=== PATIENT | female | born 1960 | race Caucasian/White ===

== ENCOUNTER 2017-07-20 08:49 | Outpatient (CLI) | payer BC | END 2017-07-20 08:50 | disposition home or self-care (01) | LOC: BICMAMMO 08:49 | PROVIDERS: ATTEND Family Medicine | DX: Z12.31 Encounter for screening mammogram for malignant neoplasm of breast (principal); Z85.850 Personal history of malignant neoplasm of thyroid; Z80.3 Family history of malignant neoplasm of breast | CPT/HCPCS: 77063; 77067 ==

== ENCOUNTER 2018-07-27 09:43 | Outpatient (CLI) | payer BC ==
--- NOTE | 2018-07-27 10:05 | RAD ---
2 views chest HISTORY: Chest pain. PA and lateral views of the chest obtained. Comparison made to previous exam from 09/14/2016. 2 views chest demonstrate the lungs to be well aerated. No evidence of active intrathoracic disease s een. No evidence of effusions, pneumonia or pneumothorax seen IMPRESSION: unremarkable 2 views chest.
== END 2018-07-27 09:44 | disposition home or self-care (01) ==
LOC: RAD 09:43
PROVIDERS: ATTEND Family Medicine
DX: R07.1 Chest pain on breathing (principal)
CPT/HCPCS: 71046

== ENCOUNTER 2018-09-19 07:57 | Outpatient (CLI) | payer BC ==
--- NOTE | 2018-09-19 12:11 | CT ---
CT CHEST WITH IV CONTRAST: DATE: 09/19/2018. PROVIDED CLINICAL HISTORY: Chest pain. FINDINGS: Comparison is made with CT examination of the abdomen and pelvis dated 09/11/2015. Minimal vascular calcification is seen. The heart, pericardium, and great vessels demonstrate an oth erwise unremarkable CT appearance. There is no evidence for thoracic lymph node enlargement. The airway appears patent and of normal caliber. No pleural fluid or pneumothorax apparent. Liver-containing diaphragmatic hernia is redemonstrated, appearing larger than on prior. Previously, the diameter of the herniated liver measured approximately 4.5 cm. Now it measures approximately 5. 7 cm. The lung parenchyma is free of significant opacity. Postoperative changes of gastric sleeve a nd cholecystectomy are seen. Diffuse fatty infiltration of the liver and stable left adrenal nodule. The osseous structures demonstrate no concerning lytic or blastic lesions. IMPRESSION: 1. Interval increase in size of liver-containing diaphragmatic hernia as above. 2. Chronic findings as above. POS: [facility]
[2018-09-19] MEDS ORDERED: ISOVUE-370 76%-LOCM 1 ML ONE (14:35)
== END 2018-09-19 07:58 | disposition home or self-care (01) ==
LOC: BICCT 07:57
PROVIDERS: ATTEND Family Medicine
DX: R07.89 Other chest pain (principal); K44.9 Diaphragmatic hernia without obstruction or gangrene; K76.0 Fatty (change of) liver, not elsewhere classified; E27.8 Other specified disorders of adrenal gland; I99.9 Unspecified disorder of circulatory system; Z90.49 Acquired absence of other specified parts of digestive tract; Z98.84 Bariatric surgery status
CPT/HCPCS: 71260; Q9966

== ENCOUNTER 2018-09-23 08:13 | Outpatient (CLI) | payer BC ==
--- NOTE | 2018-09-23 09:06 | MMO ---
Bilateral MAMMO Bilat Screen [facility]. CLINICAL HISTORY: Patient is 58 years old and is seen for screening. The patient has the following family history of breast cancer: maternal aunt, malignant (generic), x2 and cousin female, malignant (generic). The patient has a history of thyroid cancer. The patient has a history of Implants in 1985. VIEWS: The views performed were: bilateral craniocaudal with tomosynthesis; bilateral mediolateral oblique with tomosynthesis; and bilateral Implant displaced. FILMS COMPARED: The present examination has been compared to a prior imaging study performed at [facility] on 07/20/2017. MAMMOGRAM FINDINGS: There are scattered fibroglandular densities. Finding 1: Bilateral implants are stable. Finding 2: There are stable benign appearing calcifications seen in both breasts. There are no suspicious masses, suspicious calcifications, or new areas of architectural distortion. IMPRESSION: THERE IS NO MAMMOGRAPHIC EVIDENCE OF MALIGNANCY. A ROUTINE FOLLOW-UP MAMMOGRAM IN 1 YEAR IS RECOMMENDED. THE RESULTS OF THIS EXAM WERE SENT TO THE PATIENT. ACR BI-RADS Category 2 - Benign finding MAMMOGRAPHY NOTE: 1. A negative mammogram report should not delay a biopsy if a dominant of clinically suspicious mass is present. 2. Approximately 10% to 15% of breast cancers are not detected by mammography. 3. Adenosis and dense breasts may obscure an underlying neoplasm. Reported by: MARCOS GÓMEZ MD Electonically Signed: [id number]
== END 2018-09-23 08:14 | disposition home or self-care (01) ==
LOC: BICMAMMO 08:13
PROVIDERS: ATTEND Family Medicine
DX: Z12.31 Encounter for screening mammogram for malignant neoplasm of breast (principal); Z80.3 Family history of malignant neoplasm of breast
CPT/HCPCS: 77063; 77067

== ENCOUNTER 2019-11-22 13:00 | Outpatient (CLI) | payer BC ==
--- NOTE | 2019-11-22 15:56 | CT ---
CT CHEST WITHOUT CONTRAST: Date: 11/22/2019 HISTORY: Diaphragmatic hernia. COMPARISON: CT chest of 09/19/[address] abdomen and pelvis of 09/10/2015. There are bilateral breast implants. Vascular calcifications are present without evidence of aneurysm al dilatation of the abdominal aorta. No pleural or pericardial effusions are noted. A calcified gran uloma is again seen in the right upper lobe peripherally. A tiny peripheral calcified granuloma is al so seen in the right lower lobe. No other lung nodules are identified. The liver-containing diaphragmatic hernia is stable. Postop changes of cholecystectomy and gastric surgery are again seen. The 2.4 cm left adrenal nodule is stable since 09/11/2015. Changes of fatty liver are again seen. IMPRESSION: Stable exam. POS: AH
== END 2019-11-22 13:01 | disposition home or self-care (01) ==
LOC: BICCT 13:00
PROVIDERS: ATTEND Thoracic Surgery (Cardiothoracic Vascular Surgery)
DX: K44.9 Diaphragmatic hernia without obstruction or gangrene (principal)
CPT/HCPCS: 71250

== ENCOUNTER 2020-04-18 14:48 | Outpatient (CLI) | payer BC | END 2020-04-18 14:49 | disposition home or self-care (01) | LOC: BICMAMMO 14:48 | PROVIDERS: ATTEND Family Medicine | DX: Z12.31 Encounter for screening mammogram for malignant neoplasm of breast (principal); Z80.3 Family history of malignant neoplasm of breast; Z85.850 Personal history of malignant neoplasm of thyroid; Z98.82 Breast implant status | CPT/HCPCS: 77063; 77067 ==

== ENCOUNTER 2020-12-31 11:00 | Outpatient (CLI) | payer BC | END 2020-12-31 11:01 | disposition home or self-care (01) | LOC: BICCT 11:00 | PROVIDERS: ATTEND Thoracic Surgery (Cardiothoracic Vascular Surgery) | DX: K44.9 Diaphragmatic hernia without obstruction or gangrene (principal); E27.8 Other specified disorders of adrenal gland | CPT/HCPCS: 71250 ==

== ENCOUNTER 2023-11-24 09:39 | Outpatient (CLI) | payer BC | END 2023-11-24 09:40 | disposition home or self-care (01) | LOC: BICMAMMO 09:39 | PROVIDERS: ATTEND Family Medicine | DX: Z12.31 Encounter for screening mammogram for malignant neoplasm of breast (principal); Z80.3 Family history of malignant neoplasm of breast; Z85.850 Personal history of malignant neoplasm of thyroid; Z98.82 Breast implant status | CPT/HCPCS: 77063; 77067 ==

== ENCOUNTER 2025-01-05 15:03 | Outpatient (CLI) | payer MEDICARE | END 2025-01-05 15:04 | disposition home or self-care (01) | LOC: BICRAD 15:03 | PROVIDERS: ATTEND Nurse Practitioner Family | DX: M25.561 Pain in right knee (principal); M17.11 Unilateral primary osteoarthritis, right knee ==

== ENCOUNTER 2025-01-25 10:06 | Outpatient (CLI) | payer MEDICARE | END 2025-01-25 10:07 | disposition home or self-care (01) | LOC: BICMRI 10:06 | PROVIDERS: ATTEND Family Medicine Sports Medicine | DX: S83.281A Other tear of lateral meniscus, current injury, right knee, initial encounter (principal); S83.241A Other tear of medial meniscus, current injury, right knee, initial encounter; M22.41 Chondromalacia patellae, right knee; M71.21 Synovial cyst of popliteal space [Baker], right knee ==